=== PATIENT | female | born 1995 | race Caucasian/White ===

== ENCOUNTER 2016-09-21 22:45 | Emergency (ER) | payer SELFPAY ==
--- NOTE | 2016-09-21 23:20 | ED NURSING NOTES ---
Clinical Report - Nurses [facility] [address] [place] [address] 09/21/2016 22:47 [id number] Triage time 23:00 Sep 21 2016. Acuity: LEVEL 3. Chief Complaint: ("pain in lungs"). 23:00 09/21/16. SEPSIS SCREEN: Sepsis Screen. Negative (no infection suspected/documented). SAMIRA COMA SCORE: [place] Coma Scale: 15- eyes open spontaneously (4); best verbal response- oriented x 4 (5); best motor response- obeys commands (6). --23:04 Cori Moses R.N. 23:00 09/21/16. BP: 156/97. HR: 82. RR: 18. O2 saturation: 99%. Temp: 98.6 F. Pain level now 7/10. --23:04 Cori Moses R.N. Weight: 63.5 kg. Height/Length: 60 inches. BMI: 27.3. --22:59 Cori Moses R.N. Medications None. --23:00 Cori Moses R.N. Medication/allergy information source: the patient. --23:04 Cori Moses R.N. Allergies No Known Drug Allergy. --23:01 Cori Moses R.N. History Arrived by private vehicle. Historian: patient. Accompanied by friend. Primary physician (no family MD). Onset. (3 days ago). ( states smokes pot, but after she did a few days ago, she felt sharp pain in her back under left scapula, not reproducible. worse when she lays down flat. denies cough. no recent long trips, no control use.). No fever, weakness, cough, difficulty breathing or skin rash. Denies muscle aches. PAST MEDICAL HX: Last normal menstrual period- 1 weeks ago. SOCIAL HX: Never smoker. Occasional alcohol use. History of drug use: marijuana. Recently used drugs days ago. ABUSE ASSESSMENT: No report of abuse. NUTRITIONAL RISK ASSESSMENT: The nutritional risk assessment revealed no deficiencies. FUNCTIONAL ASSESSMENT: Functional assessment: no impairments noted. LEARNING NEEDS ASSESSMENT: The learning needs assessment revealed no barriers. SKIN INTEGRITY ASSESSMENT: Skin integrity risk assessment completed. No skin integrity risk identified. --23:04 Cori Moses R.N. PROBLEMS: Pyelonephritis. --23:01 Cori Moses R.N. ADDITIONAL SURGERIES: no known surgeries. Interventions ID band on patient. --23:04 Cori Moses R.N. PHYSICAL ASSESSMENT 23:09/21/16. Ambulatory to room. GENERAL / NEURO / PSYCH: Alert. Oriented X 4. HEENT: Pupils equal, round and reactive to light. Mucous membranes are pink. RESPIRATORY: Chest nontender. Breath sounds within normal limits. CVS: Capillary refill less than 2 seconds. Pulses within normal limits. GI / : Abdomen nontender. SKIN: Skin intact. Skin is warm and dry. Normal skin turgor. --23:08 Cori Moses R.N. NURSING PROGRESS NOTES 23:09/21/16. The initial plan of care for this patient includes an assessment with efforts to address the presence of pain. This plan of care was discussed with the patient. Patient gowned. Reassurance given. Patient identifiers checked. Call light placed in reach. Side rails up x 1. Bed placed in lowest position. Brakes of bed on. --23:08 Cori Moses R.N. 23:33 09/21/2016 Ibuprofen PO Tablets 800 mg given. Allergies verified and confirmed 5 rights. --23:37 Cori Moses R.N. DISPOSITION / DISCHARGE 23:09/21/16. Departure time: :Sep 21 2016. Condition at departure: improved and stable. The goals identified in the patient's plan of care were met. No learning barriers present. Reviewed medication(s) side effects, precautions, dosing and course information. Prescription(s) given to the patient. Reviewed referral to a primary care physician for followup. Summary of care provided to patient via paper. Patient verbalized understanding. Written instructions provided in Afghan. The patient was discharged home and accompanied by roll forming machine operator. She left the Emergency Department ambulatory and via private vehicle. Shape Carver driving. --23:44 Cori Moses R.N. 23:00 09/21/16. BP: 156/97. HR: 82. RR: 18. O2 saturation: 99%. Temp: 98.6 F. Pain level now 7/10. --23:44 Cori Moses R.N. Locked/Released at 09/21/2016 23:45 by Cori Moses R.N.
--- NOTE | 2016-09-21 23:20 | ED ORDER SUMMARY ---
..... Patient: SUE POWELL OrderSheet [facility] VisitID: [id number] [address] [place] [address] 21y, F Registration Date/Time: 09/21/2016 ORDER SHEET Weight: 63.5 kg Allergies: No Known Drug Allergy GENERAL ORDERS: MEDICATION ORDERS: Ibuprofen PO 800 mg (NOW) (23:14 09/21/2016 Ginny Paniagua) (23:37 Gabi Domingo.Tin) IV FLUIDS: ORDER SHEET NOTES: [Electronically signed by Mansoor Briscoe Dr. (23:23 09/21/2016)] [Electronically signed by Cori Moses R.N. (23:45 09/21/2016)] [Electronically locked/signed by Cori Moses R.N. (23:45 09/21/2016)]
--- NOTE | 2016-09-21 23:20 | ED CLINICAL REPORT ---
Clinical Report - Physicians/Mid Levels [facility] [address] [place] [address] 09/21/2016 22:47 Patient: SUE POWELL Time Seen: 23:08; initial patient contact. Arrived- By private vehicle. Historian- patient. HISTORY OF PRESENT ILLNESS Chief Complaint: COUGH. This started about 4 days ago and is still present. It was gradual in onset. The illness is described as moderate. The patient has had a cough and chest discomfort. No sputum production, difficulty breathing, chest pain, fever or chills. Additional history - No known contact with a sick individual. Similar symptoms previously: None. Recent medical care: The patient was seen recently by a health care provider. REVIEW OF SYSTEMS No nausea, vomiting, pedal edema or calf pain. All systems otherwise negative, except as recorded above. PAST HISTORY Pyelonephritis. SOCIAL HISTORY Never smoker. Occasional alcohol use. PHYSICAL EXAM Vital Signs: 09/21/2016 23:00 BP: 156/97. HR: 82. RR: 18. O2 saturation: 99%. Temp: 98.6 F. Have been reviewed. Hypertensive. Heart rate normal. Respiratory rate normal. Temperature normal. Oxygen saturation normal. Appearance: Alert. No acute distress. Eyes: Eyes normal inspection. ENT: Pharynx normal. CVS: Normal heart rate and rhythm. Heart sounds normal. Respiratory: No respiratory distress. Breath sounds normal. Back: Normal inspection. No CVA tenderness. Skin: Normal skin color. No rash. Extremities: No calf tenderness. No lower extremity edema. Neuro: Oriented X 3. PROGRESS AND PROCEDURES Disposition: Discharged home in good and improved condition. Condition: good. CLINICAL IMPRESSION Pleurisy. INSTRUCTIONS Do not smoke. Prescription Medications: Diclofenac 50 mg tablets: take 1 tablet orally every 8 hours as needed for pain. Dispense thirty (30). No refill. Follow-up: Screening today revealed the patient's blood pressure to be in the hypertensive range. The patient should follow up with a primary care provider for blood pressure management. Follow-up with: [facility], , , [address], , [place], [id number] Follow up in about two days. Call for an appointment. (Electronically signed by Mansoor Briscoe Dr. 09/21/2016 23:23)
--- NOTE | 2016-09-21 23:20 | ED CLINICAL REPORT ---
Clinical Report - Physicians/Mid Levels [facility] [address] [place] [address] 09/21/2016 22:47 Patient: SUE POWELL Time Seen: 23:08; initial patient contact. Arrived- By private vehicle. Historian- patient. HISTORY OF PRESENT ILLNESS Chief Complaint: COUGH. This started about 4 days ago and is still present. It was gradual in onset. The illness is described as moderate. The patient has had a cough and chest discomfort. No sputum production, difficulty breathing, chest pain, fever or chills. Additional history - No known contact with a sick individual. Similar symptoms previously: None. Recent medical care: The patient was seen recently by a health care provider. REVIEW OF SYSTEMS No nausea, vomiting, pedal edema or calf pain. All systems otherwise negative, except as recorded above. PAST HISTORY Pyelonephritis. SOCIAL HISTORY Never smoker. Occasional alcohol use. PHYSICAL EXAM Vital Signs: 09/21/2016 23:00 BP: 156/97. HR: 82. RR: 18. O2 saturation: 99%. Temp: 98.6 F. Have been reviewed. Hypertensive. Heart rate normal. Respiratory rate normal. Temperature normal. Oxygen saturation normal. Appearance: Alert. No acute distress. Eyes: Eyes normal inspection. ENT: Pharynx normal. CVS: Normal heart rate and rhythm. Heart sounds normal. Respiratory: No respiratory distress. Breath sounds normal. Back: Normal inspection. No CVA tenderness. Skin: Normal skin color. No rash. Extremities: No calf tenderness. No lower extremity edema. Neuro: Oriented X 3. PROGRESS AND PROCEDURES Disposition: Discharged home in good and improved condition. Condition: good. CLINICAL IMPRESSION Pleurisy. INSTRUCTIONS Do not smoke. Prescription Medications: Diclofenac 50 mg tablets: take 1 tablet orally every 8 hours as needed for pain. Dispense thirty (30). No refill. Follow-up: Screening today revealed the patient's blood pressure to be in the hypertensive range. The patient should follow up with a primary care provider for blood pressure management. Follow-up with: [facility], , , [address], , [place], [id number] Follow up in about two days. Call for an appointment. (Electronically signed by Mansoor Briscoe Dr. 09/21/2016 23:23)
--- NOTE | 2016-09-21 23:20 | ED NURSING NOTES ---
Clinical Report - Nurses [facility] [address] [place] [address] 09/21/2016 22:47 [id number] Triage time 23:00 Sep 21 2016. Acuity: LEVEL 3. Chief Complaint: ("pain in lungs"). 23:00 09/21/16. SEPSIS SCREEN: Sepsis Screen. Negative (no infection suspected/documented). SAMIRA COMA SCORE: [place] Coma Scale: 15- eyes open spontaneously (4); best verbal response- oriented x 4 (5); best motor response- obeys commands (6). --23:04 Cori Moses R.N. 23:00 09/21/16. BP: 156/97. HR: 82. RR: 18. O2 saturation: 99%. Temp: 98.6 F. Pain level now 7/10. --23:04 Cori Moses R.N. Weight: 63.5 kg. Height/Length: 60 inches. BMI: 27.3. --22:59 Cori Moses R.N. Medications None. --23:00 Cori Moses R.N. Medication/allergy information source: the patient. --23:04 Cori Moses R.N. Allergies No Known Drug Allergy. --23:01 Cori Moses R.N. History Arrived by private vehicle. Historian: patient. Accompanied by friend. Primary physician (no family MD). Onset. (3 days ago). ( states smokes pot, but after she did a few days ago, she felt sharp pain in her back under left scapula, not reproducible. worse when she lays down flat. denies cough. no recent long trips, no control use.). No fever, weakness, cough, difficulty breathing or skin rash. Denies muscle aches. PAST MEDICAL HX: Last normal menstrual period- 1 weeks ago. SOCIAL HX: Never smoker. Occasional alcohol use. History of drug use: marijuana. Recently used drugs days ago. ABUSE ASSESSMENT: No report of abuse. NUTRITIONAL RISK ASSESSMENT: The nutritional risk assessment revealed no deficiencies. FUNCTIONAL ASSESSMENT: Functional assessment: no impairments noted. LEARNING NEEDS ASSESSMENT: The learning needs assessment revealed no barriers. SKIN INTEGRITY ASSESSMENT: Skin integrity risk assessment completed. No skin integrity risk identified. --23:04 Cori Moses R.N. PROBLEMS: Pyelonephritis. --23:01 Cori Moses R.N. ADDITIONAL SURGERIES: no known surgeries. Interventions ID band on patient. --23:04 Cori Moses R.N. PHYSICAL ASSESSMENT 23:09/21/16. Ambulatory to room. GENERAL / NEURO / PSYCH: Alert. Oriented X 4. HEENT: Pupils equal, round and reactive to light. Mucous membranes are pink. RESPIRATORY: Chest nontender. Breath sounds within normal limits. CVS: Capillary refill less than 2 seconds. Pulses within normal limits. GI / : Abdomen nontender. SKIN: Skin intact. Skin is warm and dry. Normal skin turgor. --23:08 Cori Moses R.N. NURSING PROGRESS NOTES 23:09/21/16. The initial plan of care for this patient includes an assessment with efforts to address the presence of pain. This plan of care was discussed with the patient. Patient gowned. Reassurance given. Patient identifiers checked. Call light placed in reach. Side rails up x 1. Bed placed in lowest position. Brakes of bed on. --23:08 Cori Moses R.N. 23:33 09/21/2016 Ibuprofen PO Tablets 800 mg given. Allergies verified and confirmed 5 rights. --23:37 Cori Moses R.N. DISPOSITION / DISCHARGE 23:09/21/16. Departure time: :Sep 21 2016. Condition at departure: improved and stable. The goals identified in the patient's plan of care were met. No learning barriers present. Reviewed medication(s) side effects, precautions, dosing and course information. Prescription(s) given to the patient. Reviewed referral to a primary care physician for followup. Summary of care provided to patient via paper. Patient verbalized understanding. Written instructions provided in Grenadian. The patient was discharged home and accompanied by stock or delivery clerk. She left the Emergency Department ambulatory and via private vehicle. Lithoplate Maker driving. --23:44 Cori Moses R.N. 23:00 09/21/16. BP: 156/97. HR: 82. RR: 18. O2 saturation: 99%. Temp: 98.6 F. Pain level now 7/10. --23:44 Cori Moses R.N. Locked/Released at 09/21/2016 23:45 by Cori Moses R.N.
--- NOTE | 2016-09-21 23:20 | ED ORDER SUMMARY ---
..... Patient: SUE POWELL OrderSheet [facility] VisitID: [id number] [address] [place] [address] 21y, F Registration Date/Time: 09/21/2016 ORDER SHEET Weight: 63.5 kg Allergies: No Known Drug Allergy GENERAL ORDERS: MEDICATION ORDERS: Ibuprofen PO 800 mg (NOW) (23:14 09/21/2016 Ginny Paniagua) (23:37 Gabi Domingo.Tin) IV FLUIDS: ORDER SHEET NOTES: [Electronically signed by Mansoor Briscoe Dr. (23:23 09/21/2016)] [Electronically signed by Cori Moses R.N. (23:45 09/21/2016)] [Electronically locked/signed by Cori Moses R.N. (23:45 09/21/2016)]
--- NOTE | 2016-09-21 23:45 | ED DISCHARGE INSTRUCTIONS ---
Patient: SUE POWELL General Instructions [facility] VisitID: [id number] [address] [place] [address] 21y, F Registration Date/Time: 09/21/2016 Pleurisy. INSTRUCTIONS Do not smoke. Prescription Medications: Diclofenac 50 mg tablets: take 1 tablet orally every 8 hours as needed for pain. Dispense thirty (30). No refill. Follow-up: Screening today revealed the patient's blood pressure to be in the hypertensive range. The patient should follow up with a primary care provider for blood pressure management. Follow-up with: [facility], , , [address], [place], [id number] Follow up in about two days. Call for an appointment. ADDITIONAL INFORMATION Pleurisy If you have pleurisy, the lining around your lungs is inflamed. It is most often due to a viral infection or pneumonia. It usually lasts for 1014 days. It may cause sharp pain with breathing, coughing, sneezing and movement. Antibiotics are usually not prescribed for this condition unless pneumonia is also present. Home care The following will help you care for your condition at home: If symptoms are severe, rest at home for the first 23 days. Avoid being exposed to cigarette smoke (yours or that of others). You may use acetaminophen or ibuprofen to control pain, unless another pain medicine was prescribed. If you have chronic liver or kidney disease or ever had a stomach ulcer or GI bleeding, talk with your doctor before using these medicines. Follow-up care Follow up with your doctor or as advised if you do not improve over the next week. When to seek medical care Get prompt medical attention if any of the following occur: Increasing shortness of breath Increase in chest pain, or pain spreads to the neck, arm or back Fever over 100.4F (38.0C) for more than three days Coughing up lots of colored sputum (mucus) or blood Redness, pain or swelling of the leg You have been given the following additional information: Pleurisy (Electronically signed by Mansoor Briscoe Dr. 09/21/2016 23:23)
--- NOTE | 2016-09-21 23:45 | ED DISCHARGE INSTRUCTIONS ---
Patient: SUE POWELL General Instructions [facility] VisitID: [id number] [address] [place] [address] 21y, F Registration Date/Time: 09/21/2016 Pleurisy. INSTRUCTIONS Do not smoke. Prescription Medications: Diclofenac 50 mg tablets: take 1 tablet orally every 8 hours as needed for pain. Dispense thirty (30). No refill. Follow-up: Screening today revealed the patient's blood pressure to be in the hypertensive range. The patient should follow up with a primary care provider for blood pressure management. Follow-up with: [facility], , , [address], [place], [address] Follow up in about two days. Call for an appointment. ADDITIONAL INFORMATION Pleurisy If you have pleurisy, the lining around your lungs is inflamed. It is most often due to a viral infection or pneumonia. It usually lasts for 1014 days. It may cause sharp pain with breathing, coughing, sneezing and movement. Antibiotics are usually not prescribed for this condition unless pneumonia is also present. Home care The following will help you care for your condition at home: If symptoms are severe, rest at home for the first 23 days. Avoid being exposed to cigarette smoke (yours or that of others). You may use acetaminophen or ibuprofen to control pain, unless another pain medicine was prescribed. If you have chronic liver or kidney disease or ever had a stomach ulcer or GI bleeding, talk with your doctor before using these medicines. Follow-up care Follow up with your doctor or as advised if you do not improve over the next week. When to seek medical care Get prompt medical attention if any of the following occur: Increasing shortness of breath Increase in chest pain, or pain spreads to the neck, arm or back Fever over 100.4F (38.0C) for more than three days Coughing up lots of colored sputum (mucus) or blood Redness, pain or swelling of the leg You have been given the following additional information: Pleurisy (Electronically signed by Mansoor Briscoe Dr. 09/21/2016 23:23)
--- NOTE | 2016-09-21 23:46 | ED MAR SUMMARY ---
..... Medication Administration Record [facility] [address] [place] [address] Patient: SUE POWELL Visit ID: [id number] 21y, F Weight: 63.5 kg Height/Length: 60 in BMI: 27.3 ALLERGIES: No Known Drug Allergy Given 23:33 09/21/2016 Cori Moses R.N. Medication Administered: IBUPROFEN [PO], Dose: 800 mg Tablets PO. Medication Ordered: Ibuprofen PO 800 mg (NOW).
--- NOTE | 2016-09-21 23:46 | ED MAR SUMMARY ---
..... Medication Administration Record [facility] [address] [place] [address] Patient: SUE POWELL Visit ID: [id number] 21y, F Weight: 63.5 kg Height/Length: 60 in BMI: 27.3 ALLERGIES: No Known Drug Allergy Given 23:33 09/21/2016 Cori Moses R.N. Medication Administered: IBUPROFEN [PO], Dose: 800 mg Tablets PO. Medication Ordered: Ibuprofen PO 800 mg (NOW).
--- NOTE | 2016-09-21 23:46 | ED MED RECONCILIATION SUMMARY ---
Patient: SUE POWELL Medication Reconciliation Report [facility] VisitID: [id number] [address] [place] [address] 21y, F Registration Date/Time: 09/21/2016 Weight: 63.5 kg Height/Length: 60 in. BMI: 27.3 ALLERGIES: No Known Drug Allergy The patient's Home Medications are listed below: NONE. The source(s) of the original Home Medication information: patient The following Medications were given to the patient in the Emergency Department: Ibuprofen [PO] PO 800 mg, administered: 09/21/2016 11:33:00 PM The following Medications were prescribed to the patient: Diclofenac 50 mg tablets: take 1 tablet orally every 8 hours as needed for pain. Dispense thirty (30). No refill. -- Mansoor Briscoe Dr.
--- NOTE | 2016-09-21 23:46 | ED MED RECONCILIATION SUMMARY ---
Patient: SUE POWELL Medication Reconciliation Report [facility] VisitID: [id number] [address] [place] [address] 21y, F Registration Date/Time: 09/21/2016 Weight: 63.5 kg Height/Length: 60 in. BMI: 27.3 ALLERGIES: No Known Drug Allergy The patient's Home Medications are listed below: NONE. The source(s) of the original Home Medication information: patient The following Medications were given to the patient in the Emergency Department: Ibuprofen [PO] PO 800 mg, administered: 09/21/2016 11:33:00 PM The following Medications were prescribed to the patient: Diclofenac 50 mg tablets: take 1 tablet orally every 8 hours as needed for pain. Dispense thirty (30). No refill. -- Mansoor Briscoe Dr.
== END 2016-09-21 23:37 | disposition home or self-care (01) ==
LOC: ED SRH 22:45
DX: R09.1 Pleurisy (principal)